=== PATIENT | male | born 1980 | race Two or more races ===

== ENCOUNTER 2024-09-08 12:00 | Emergency (ER) | payer OTHER ==
[~2024-09-08] VITALS: Ht 180.3 cm; Wt 74.8 kg
[~2024-09-08 12:00] MED LIST: NO TOMA MEDICAMENTOS
[2024-09-08] MEDS ORDERED: KETOROLAC TROMETHAMINE 30 MG VIAL IM ONE (14:30)
[2024-09-08] MEDS ORDERED: ORPHENADRINE CITRATE 30 MG/ML AMPUL IM ONE (14:30)
[2024-09-08] MEDS ORDERED: NORFLEX100MG PO (15:51)
[2024-09-08] MEDS ORDERED: DICLOFENAC SODI50 MG PO (15:51)
== END 2024-09-08 17:13 | disposition home or self-care (01) ==
LOC: ER 12:03
DX: S30.0XXA Contusion of lower back and pelvis, initial encounter (principal); W18.39XA Other fall on same level, initial encounter; Y93.89 Activity, other specified; Y92.89 Other specified places as the place of occurrence of the external cause; Y99.9 Unspecified external cause status; Z88.0 Allergy status to penicillin; M51.369 Other intervertebral disc degeneration, lumbar region without mention of lumbar back pain or lower extremity pain